=== PATIENT | male | born 1955 | race Caucasian/White ===

== ENCOUNTER 2016-07-22 09:23 | Emergency (ER) | payer BC, OTHER ==
[2016-07-22] MEDS ORDERED: DIPHTH,PERTUSS(ACELL),TET VAC 0.5 ML VIAL IM ONE (10:48)
[2016-07-22 10:57] LABS: Hematocrit 45.3 % (42.0-52.0); Hemoglobin 14.9 gm/dL (13.5-18.0); Mean Cell Volume 83.6 fl (78-100); Mean Corpuscular Hemoglobin 27.5 pg (27-31); Mean Corpuscular Hgb Conc 32.9 g/dl (32-36); Mean Platelet Volume 8.1 fl (6.0-9.5); Neutrophil # 2.8 K/mm3 (1.3-6.0); Neutrophil % 73.8 % (42-75.0); Platelet Count 127 K/mm3 (150-450); Red Blood Count 5.42 M/mm3 (4.7-6.0); Red Cell Distribution Width 13.3 % (11.5-14.0); White Blood Count 3.7 K/mm3 (4.0-10.5)
[2016-07-22 11:21] LABS: ALT 58 U/L (19-67); AST 40 U/L (0-48); Albumin * 3.3 gm/dl (3.4-5.0); Alkaline Phosphatase * 56 U/L (50-170); Anion Gap 10.9 mmol/L (6.8-13.8); BUN/Creatinine Ratio 21.4 (9.0-21.6); Bilirubin, Total 0.4 mg/dL (0.0-1.1); Blood Urea Nitrogen 21 mg/dL (6-23); Ca. Corrected For Albumin 8.6 mg/dL (8.4-10.2); Calcium * 8.4 mg/dL (7.9-10.9); Carbon Dioxide 27.9 mmol/L (24-32.6); Chloride 103 mmol/L (97-106); Glucose * 109 mg/dL (70-110); Potassium 3.8 mmol/L (3.4-4.6); Sodium 138 mmol/L (132-142); Total Protein 6.7 gm/dL (6.2-8.2); Troponin I Less than 0.017 ng/ml (0.00-0.10)
[2016-07-22 12:20] VITALS: BP 140/83
--- NOTE | 2016-07-22 12:25 | ERNOTE ---
Head Injury HPI - Narrative Date of Service: 07/22/16 - General Time Seen by Provider: 07/22/16 10:32 Source: patient Exam Limitations: no limitations - Immun/Allergies/Home Medications Immunization: IMMUNIZATION HX Immunizations Up to Date Yes History of Influenza Vaccine Yes Allergies/Adverse Reactions: Allergies Allergy/AdvReac Type Severity Reaction Status Date / Time No Known Allergies Allergy Unverified 07/22/16 09:53 Home Medications: HOME MEDICATIONS Azithromycin [Zithromax] 500 mg PO NOW #6 tab 07/22/16 [Last Taken Unknown] - History of Present Illness Narrative: Patient presents to the ED for a laceration. he relates he has been sick since wednesday, sough, congestion. Did not go to work yesterday and did not eat or drink much. Today went to work, was working and standing and felt lightheaded, went to the bathroom but briefly passed out. He hit his forehead and has a laceration to the forehead. dT UTD. No neck pain, no CP or SOB, now feels back to normal. No abdominal pain or diarrhea. Some cough and nasal congestion for 2 days. He has passed out in the past, but not recently. He relates he feels entirely back to normal. Occurred: just prior to arrival Location Occurred: work Severity: moderate Head Injury Location: frontal Method of Injury: Reports: fell, other - passed out Reason for Fall: Reports: other - sick last 2 days, not eating or drinking much\ Loss of Consciousness: Reports: brief (seconds) Associated Symptoms: Reports: cough, syncope. Denies: chest pain, shortness of breath, headaches, neck pain, weakness Review of Systems - Review of Systems Constitutional: Absent: fever EYE: Absent: vision changes ENT: Present: nose congestion Respiratory: Absent: shortness of breath Cardiology: Absent: chest pain Gastrointestinal/Abdominal: Absent: abdominal pain Genitourinary: Present: no symptoms reported Musculoskeletal: Absent: back pain, neck pain Skin: Present: See HPI - Patient's Past Medical History Patient History - Medical: No pertinent hx Patient History - Cardiac/Respiratory: No pertinent hx Patient History - Cancer: No Hx of Cancer Patient History - Surgical Procedures: No surgical history Patient History - Other: None - Social History Living Situations: home Psych History: No pertinent hx Smoking Status: Never smoker Have you smoked in the past 12 months: No - Immunizations Immunizations Up to Date: Yes History of Influenza Vaccine: Yes Physical Exam - Physical Exam General Appearance: Present: alert, no apparent distress Eye Exam: Normal inspection: bilateral, PERRL: bilateral, EOMI: bilateral - No hyphema or globe injury Ears, Nose, Throat: Present: other - 3.5 cm facial lacertaion righyt frontal. 2cm right eyebrow laceration. No facial bone tenderness. No left sided trauma or tendenress. No intra-oral trauma. No nasal septal hematoma. Neck: Present: normal inspection, nontender, supple, full range of motion, other - No tendenrss, cleared clinically Respiratory: Present: no respiratory distress, normal breath sounds, no accessory muscle use, lungs clear Cardiovascular/Chest: Present: regular rate, rhythm Gastrointestinal/Abdominal: Present: normal bowel sounds, nontender, nondistended, soft, no organomegaly Back Exam: Present: normal inspection, normal range of motion, no vertebral tenderness Extremity Exam: Present: normal inspection, non-tender, no edema, normal range of motion Neurological Exam: Present: alert, oriented, normal mood/affect, no motor/ sensory deficits, electrical unit rebuilder II-XII nml as tested. Absent: facial droop, motor weakness Skin Exam: Present: other - lacerations as noted above ED Progress - Results and Orders Patient's Lab Results:: I have reviewed the patient's lab results. - Vital Signs Patient's Vital Signs:: I have reviewed the patient's vital signs. Vital Signs: Vital Signs 07/22/16 07/22/16 09:48 11:13 Temperature 36.2 C L Pulse Rate 85 84 Respiratory 16 18 Rate Blood Pressure 152/92 162/86 O2 Sat by Pulse 96 97 Oximetry - EKG EKG: NSR EKG read: Interp. by me EKG Comments: NSR rate 81. No STEMI. Non-specific ST/T wave changes. - X-Ray X-Ray #1 X-Ray: chest Interpretation: Reviewed by me X-ray Comments: I reviewed official radiology report. - CT/Ultrasound CT/Ultrasound Narrative: I reviewed CT report - Progress/Reassessment Chief Complaint: Head Injury Progress Note-Subjective: 07/22/16 12:21 Patietn wishes to go home. He declines further observation. Risks and benefits discussed. I discussed warning signs and reasons to reutrn . His syncopal episode is likely from his recent URI/illness. Nothing at this point to suggest ACS or other acute life threat. Procedures Right Face Date and Time: Jul 22 2016 at 1200 Anesthesia: 1% Lidocaine, Local I & D Prep: sterile drapes applied, other - surgical scrub. NS irrigation syringe Length of Repair/Wound (cm): 5.5 Wound's Depth/Shape: into subcutaneous, irregular, contused tissue, other - some macerated tissue and irregular. Wound Explored: clean, to base, no foreign body Wound Intervention: irrigated w/saline Distal NVT: neuro/vasc intact Wound Repaired With: sutures Suture Size/Type: 5-0, nylon Number of Sutures: 11 Layer Closure: Simple Wound Dressing: sterile dressing applied Complications: other - 8 sutures in forehead, 3 sutures in eyebrow, total length 5.5 cm Departure Clinical Impression: Laceration of face, Sinusitis, Syncope - Departure Disposition: Home self-care Condition: Stable Instructions: Laceration Care, Adult, [id number] Additional Instructions: Rest. Fluids. Medications as directed. Sutures in 5 days. Follow-up with your doctor in 3 days for a re-check. Return for fever, pain, signs of infection or if your condition worsens or changes in any way. Prescriptions: Azithromycin [Zithromax] 500 mg PO NOW #6 tab
== END 2016-07-22 12:22 | disposition home or self-care (01) ==
LOC: ER 09:23
PROC: 0JQ10ZZ Repair Face Subcutaneous Tissue and Fascia, Open Approach (ICD-10-PCS; principal; 2016-07-22)
DX: R55 Syncope and collapse (principal); J01.90 Acute sinusitis, unspecified; S01.81XA Laceration without foreign body of other part of head, initial encounter; S01.111A Laceration without foreign body of right eyelid and periocular area, initial encounter; W19.XXXA Unspecified fall, initial encounter